=== PATIENT | female | born 1990 | race African-American/Black ===

== ENCOUNTER 2020-08-17 14:25 | Emergency (ER) | payer OTHER ==
[~2020-08-17] VITALS: Ht 149.9 cm; Wt 113.4 kg
[2020-08-17 15:45] LABS: ABSOLUTE NEUTROPHILS 4.4 thou/uL (1.4-8.2); BASOPHILS 0.5 % (0.0-2.0); EOSINOPHILS 0.6 % (0.0-3.0); LYMPHOCYTES 37.5 % (24.0-44.0); MCH 24.6 pg (26.0-34.0); MCHC 31.6 g/dL (28.0-37.0); MCV 77.8 fL (80.0-100.0); PLATELET COUNT 367 thou/uL (150-400); POLYS 55.4 % (36.0-66.0); RBC 4.49 mil/uL (4.20-5.00); RDW 15.5 % (10.5-14.5); WBC 7.9 thou/uL (4.0-11.0)
[2020-08-17 15:47] LABS: CALCIUM 9.1 mg/dL (8.5-10.1); CREATININE 0.9 mg/dL (0.6-1.0); POTASSIUM 4.5 mmol/L (3.5-5.1)
[2020-08-17 15:53] LABS: ALBUMIN 3.7 g/dL (3.4-5.0); TOTAL BILIRUBIN 0.1 mg/dL (0.2-1.0); TOTAL PROTEIN 7.7 g/dL (6.4-8.2)
[2020-08-17] MEDS ORDERED: PENICILLIN V P500 MG PO (17:24)
[2020-08-17] MEDS ORDERED: PREDNISONE 20 M20 MG PO (17:24)
[2020-08-17] MEDS ORDERED: MAGIC MOUTHWASH SW&SWALLOW (17:24)
[2020-08-17 18:08] VITALS: BP 145/81
== END 2020-08-17 18:10 | disposition home or self-care (01) ==
LOC: ER 14:25
PROVIDERS: Physician Assistant
DX: J02.0 Streptococcal pharyngitis (principal); Z98.890 Other specified postprocedural states; Z90.49 Acquired absence of other specified parts of digestive tract